=== PATIENT | female | born 1985 | race Caucasian/White ===

== ENCOUNTER 2024-04-11 11:20 | Emergency (ER) | payer SELFPAY ==
[2024-04-11 11:50] VITALS: BP 152/88
--- NOTE | 2024-04-11 11:56 | ED.GENMED ---
ED Provider Triage
<Alex Booker PA-C - Last Filed: 04/11/24 11:57>
-
Patient seen by provider in Triage?: Seen in Triage
38 yo female currently 7 wk GA presents for vaginal bleeding x 3 days, increased yesterday but minimal today. Mild pelvic cramping. No fevers. No hx of miscarriage
Looks well, anxious, no distress.
Check CBC, HCG quant, US, blood type for Rh status
History of Present Illness
<Alex Booker PA-C - Last Filed: 04/11/24 11:57>
General
Chief Complaint: Problems
Time Seen by Provider: 04/11/24 13:39
<Joao Roman MD - Last Filed: 04/11/24 19:44>
General
Source: patient
Exam Limitations: none
Nursing documentation reviewed up to this point in time: agreed with
History of Present Illness
History of Present Illness:
Patient G3, P2, presents to ED secondary to 2-day history of vaginal bleeding with lower abdominal cramping sensation. Fortunately, today, bleeding has lightened. Patient denies chest pain or shortness of breath. Denies fever or chills. Denies
nausea or vomiting. Denies trauma. Patient is currently awaiting insurance approval to see her [employer] physician.
Review of Systems
<Joao Roman MD - Last Filed: 04/11/24 19:44>
Review of Systems
Allergies reviewed?: Yes
All Other Systems: ROS reviewed and negative except as documented in HPI and ROS
Constitutional: Reports no symptoms; Denies fever
Respiratory: Reports no symptoms
Cardiac: Reports no symptoms
ABD/GI: Reports abdominal pain; Denies vomiting
: Reports bleeding
Musculoskeletal: Reports no symptoms
Skin: Reports no symptoms
Neurological: Reports no symptoms
Phy Exam
<Joao Roman MD - Last Filed: 04/11/24 19:44>
Physical Exam
Physical Exam:
Physical Exam
General: no apparent distress, not acutely ill. afebrile.
Head: nc/at. eomi
Neck: supple. normal range of motion.
Abdomen: normal bowel sounds. not tender.
Neuro: alert and oriented x 3. no focal neurological deficits
Skin: no rash
Psychiatric: well kept. interactive and cooperative
Extremities: no edema. no calf tenderness.
Course
<Alex Booker PA-C - Last Filed: 04/11/24 11:57>
Orders/Labs/Results
Orders:
Orders
04/11/24 11:53
US W Transvaginal Urgent
Comment:
Reason For Exam: vaginal bleeding, 1st trimester
04/11/24 12:02
Type+Screen Urgent
Complete Blood Count/No Diff Urgent
HCG, Beta Quantitative [Beta HCG Quantitative] Urgent
Is this a screen?: No
04/11/24 15:32
ABO2 Urgent
BBK Wristband Number:
Associate notified that ABO2 has been ordered: [id number]
Date: 04/11/24
Time: 12:16
[employer] ID: [id number]
Abnormal Lab Results
04/11/24
12:02
WBC 11.0 H 10^3/uL
(4.8-10.8)
04/11/24 12:02
Vital Signs
Initial and Last Documented VS:
Initial Vital Signs
Temp Pulse Resp BP Pulse Ox
98.2 F 103 20 152/88 99
04/11/24 11:50 04/11/24 11:50 04/11/24 11:50 04/11/24 11:50 04/11/24 11:50
Last Documented Vital Signs
Temp Pulse Resp BP Pulse Ox
98.2 F 82 16 112/76 100
04/11/24 11:50 04/11/24 16:36 04/11/24 16:36 04/11/24 16:36 04/11/24 16:36
<Joao Roman MD - Last Filed: 04/11/24 19:44>
Orders/Labs/Results
Orders:
Orders
04/11/24 11:53
US W Transvaginal Urgent
Comment:
Reason For Exam: vaginal bleeding, 1st trimester
04/11/24 12:02
Type+Screen Urgent
Complete Blood Count/No Diff Urgent
HCG, Beta Quantitative [Beta HCG Quantitative] Urgent
Is this a screen?: No
04/11/24 15:32
ABO2 Urgent
BBK Wristband Number:
Associate notified that ABO2 has been ordered: [id number]
Date: 04/11/24
Time: 12:16
[employer] ID: [id number]
Abnormal Lab Results
04/11/24
12:02
WBC 11.0 H 10^3/uL
(4.8-10.8)
04/11/24 12:02
Vital Signs
Initial and Last Documented VS:
Initial Vital Signs
Temp Pulse Resp BP Pulse Ox
98.2 F 103 20 152/88 99
04/11/24 11:50 04/11/24 11:50 04/11/24 11:50 04/11/24 11:50 04/11/24 11:50
Last Documented Vital Signs
Temp Pulse Resp BP Pulse Ox
98.2 F 82 16 112/76 100
04/11/24 11:50 04/11/24 16:36 04/11/24 16:36 04/11/24 16:36 04/11/24 16:36
Information
Weeks gestation: Weeks: (5)
Location: N/A
<Joao Roman MD - Last Filed: 04/11/24 19:44>
MDM/Problems Addressed
MDM/Problems Addressed:
Serum beta-hCG count as well as pelvic ultrasound report reviewed and discussed with on-call [employer] physician, Dr. Marte. Recommends repeat beta-hCG level to be done at the hospital on Sunday. Office will follow-up with the patient afterwards with
further directions.
Patient without any further vaginal bleeding during observation ED, and remains hemodynamically stable. Return precautions provided. Patient expressed understanding of discharge instructions, at time of discharge.
<Joao Roman MD - Last Filed: 04/11/24 19:44>
*Critical Care Note
Total Time (30-74mins, 75-104mins- exclusive of procedures): Not Applicable
ED Attending Note
<Alex Booker PA-C - Last Filed: 04/11/24 11:57>
-
Portions of this chart may have been created with voice recognition software.� Occasional wrong word or��sound alike� substitutions may have occurred due to the inherent limitations of voice recognition software.
Discharge Plan
Departure
Patient Disposition: Home (Routine Discharge)
Date of Disposition: 04/11/24
Time of Disposition: 16:34
Patient with high blood pressure during this ER visit?: Yes
Discharge Problem:
Threatened miscarriage
Instructions: Threatened Miscarriage (DC)
Referrals:
Lit Steve DO [Family Provider] -
Miladys Marte MD [Active] -
Activity Restrictions/Additional Instructions:
As discussed, please obtain requested blood work on Sunday at [facility], at outpatient lab. Afterwards, you will receive a phone call from your [employer] office with further recommendations.
Interventions
Interventions:
*Risk Screen - Suicide Last Done: 04/11/24 12:16
*General Assessment Last Done: 04/11/24 11:50
*Neglect/Abuse Screening Last Done: 04/11/24 12:16
ED- Fall Risk Assessment Last Done: 04/11/24 12:16
*ED COVID-19 Vaccine History Last Done: 04/11/24 16:37
*Nursing Disposition Last Done: 04/11/24 16:37
ED-Female Genitourinary Assessment Last Done: 04/11/24 12:16
Discharge Date and Time
Discharge Date/Time: 04/11/24 16:37
Print Language: ITALIAN
[2024-04-11 12:14] LABS: Hematocrit 42.1 % (37.0-47.0); Hemoglobin 14.2 g/dL (12.0-16.0); Mean Corp Hgb Conc. 33.7 g/dL (33.0-37.0); Mean Corpuscular Volume 88.8 fL (81.0-99.0); Mean Platelet Volume 9.1 fL (7.4-10.4); Platelet Count 254 10^3/uL (130-400); Red Blood Cell Count 4.74 10^6/uL (4.20-5.40); Red Cell Dist. Width 13.6 % (11.5-14.5)
[2024-04-11 14:13] VITALS: BP 119/73
[2024-04-11 16:36] VITALS: BP 112/76
== END 2024-04-11 16:37 | disposition home or self-care (01) ==
LOC: EMR 11:20
PROVIDERS: Physician Assistant; EMERGENCY PHYSICIAN Emergency Medicine; FAMILY PHYSICIAN Family Medicine
DX: O20.0 Threatened abortion (principal); O09.521 Supervision of elderly multigravida, first trimester; Z3A.01 Less than 8 weeks gestation of pregnancy
CPT/HCPCS: 99284; 76801; 76817; 84702; 85027; 86850; 86900; 86901